=== PATIENT | female | born 1960 | race Caucasian/White ===

== ENCOUNTER 2023-11-17 16:55 | Emergency (ER) | payer OTHER ==
[2023-11-17] MEDS ORDERED: Ondansetron PF 4 MG/2 ML Vial ONE (17:48)
[2023-11-17] MEDS ORDERED: Morphine 4 MG/ML VIAL ONE (17:48)
[2023-11-17 17:58] LABS: #Eosinphils 0.1 thou/uL (0.0-0.7); #Monocytes 0.7 thou/uL (0.11-0.59); #Neutrophils 9.2 thou/uL (1.40-6.50); %Basophils 0.4 % (0.0-1.0); %Eosinophils 0.4 % (0.0-10.0); %Lymphocytes 10.8 % (21.0-51.0); %Monocytes 6.4 % (0.0-10.0); %Neutrophils 81.6 % (42.0-75.0); Hematocrit 44.5 % (36.0-47.0); Hemoglobin 14.9 g/dL (12.0-16.0); Mean Corpuscular HGB CONC 33.5 g/dL (32.0-36.0); Mean Corpuscular Hemoglobin 31.5 pg (27.0-31.0); Mean Corpuscular Volume 94.1 fl (78.0-98.0); Mean Platelet Volume 9.5 fL (7.4-10.4); Platelet Count 237 10x3/uL (130-400); RBC Distribution Width 12.9 % (11.5-14.5); Red Blood Cell (RBC) Count 4.73 mill/uL (4.20-5.40); White Blood Cell (WBC) Count 11.2 10x3/uL (4.8-10.8)
[2023-11-17 18:20] LABS: ALT (SGPT) 70 U/L (8-55); AST (SGOT) 64 U/L (5-34); Albumin 4.3 g/dL (3.4-4.8); Alcohol Less than 10.0 mg/dL (Less than 10); Alkaline Phosphatase 40 U/L (40-110); Anion Gap 16 mmol/L (10-20); BUN (Urea Nitrogen) 13 mg/dL (9.8-20.1); Bilirubin, Total 0.4 mg/dL (0.2-1.2); Calc. Creatinine Clearance 0 mL/min (70-130); Calcium 9.8 mg/dL (7.8-10.44); Carbon Dioxide 21 mmol/L (23-31); Chloride 106 mmol/L (98-107); Estimated GFR 62; Globulin 2.4 g/dL (2.4-3.5); Glucose 104 mg/dL (80-115); Potassium 3.6 mmol/L (3.5-5.1); Protein, Total 6.7 g/dL (5.8-8.1); Sodium 139 mmol/L (136-145)
[2023-11-17 18:21] LABS: PTT 21.8 sec (22.9-36.1)
[2023-11-17] MEDS ORDERED: Lidocaine 1% PF 5 ML VIAL ONE (18:32)
[2023-11-17] MEDS ORDERED: Boostrix 0.5 ML (Tdap) VIAL (>/=7 yrs of age) ONE (18:33)
[2023-11-17] MEDS ORDERED: Acetaminophen 500 MG TAB ONE (18:38)
[2023-11-17 19:18] LABS: Bacteria/HPF None Seen HPF (None Seen); Bilirubin Negative (Negative); Blood, Urine 1+ (Negative); CAUTI Indications for Culture Pelvic or flank pain; Clarity Clear (Clear); Glucose, Urine (Dipstick) Normal (Negative); Ketone, Urine 60 mg/dL (Negative); Leukocyte Negative Leu/uL (Negative); Nitrite Negative (Negative); Protein, Urine (Dipstick) 20 mg/dL (Neg-Trace); Specific Gravity, Urine 1.024 (1.002-1.036); Squamous Epithelial 0-3 HPF (0-3); Urobilinogen Normal mg/dL (Less than 2); WBC/HPF 0-3 HPF (0-3)
[2023-11-17 19:22] LABS: Urine Culture Reflex No No
[2023-11-17] MEDS ORDERED: Bacitracin 1 PK ONE (19:47)
== END 2023-11-17 19:55 | disposition home or self-care (01) ==
LOC: ERS 16:55
DX: S06.0X9A Concussion with loss of consciousness of unspecified duration, initial encounter (principal); S52.121A Displaced fracture of head of right radius, initial encounter for closed fracture; S01.81XA Laceration without foreign body of other part of head, initial encounter; S80.811A Abrasion, right lower leg, initial encounter; S50.811A Abrasion of right forearm, initial encounter; V21.41XA Electric (assisted) bicycle driver injured in collision with pedal cycle in traffic accident, initial encounter; Z23 Encounter for immunization
CPT/HCPCS: 12013; 29125; 36415; 70450; 71045; 72125; 80053; 80307; 81001; 85025; 85610; 85730; 90471; 90715; 93005; 96374; 96375; G0390; J2270; J2405